=== PATIENT | male | born 1980 | race Caucasian/White ===

== ENCOUNTER 2018-11-19 15:14 | Emergency (ER) | payer OTHER ==
[~2018-11-19] VITALS: Ht 188 cm; Wt 84.1 kg
[2018-11-19 15:19] VITALS: Ht 188 cm; Wt 84.1 kg
[2018-11-19] MEDS ORDERED: IBUPROFEN 800 MG TAB PO ONE (16:30)
[2018-11-19] MEDS ORDERED: IBUP-1542 PO (16:33)
--- NOTE | 2018-11-19 16:34 | ERD ---
ER Documentation Chief Complaint Chief Complaint LT SIDE CHEST PAIN RADIATING TO LT ARM AND BACK HPI Patient is a 38-year-old male with no medical problems who presents with left- sided chest pain. The patient said that it started yesterday. It radiates to his left arm and his left arm felt numb. He has had no treatment as of yet. Upon review of old medical records this is the patient's first visit to the emergency department. He does not remember the name of his primary doctor. The symptoms come and go and are sharp in nature. ROS All systems reviewed and are negative except as per history of present illness. Medications Home Meds Active Scripts Ibuprofen* (Motrin*) 600 Mg Tab, 600 MG PO Q6H PRN for PAIN AND OR ELEVATED TEMP, #30 TAB Prov:ZAHIRA LANIER MD 11/19/18 Allergies Allergies: Coded Allergies: No Known Allergy (Unverified , 11/19/18) PMhx/Soc Medical and Surgical Hx: pt denies Medical Hx, pt denies Surgical Hx Hx Alcohol Use: No Hx Substance Use: No Hx Tobacco Use: No Smoking Status: Never smoker FmHx Family History: No diabetes Physical Exam Vitals Vital Signs Date Temp Pulse Resp B/P (MAP) Pulse Ox O2 O2 Flow FiO2 Time Delivery Rate 11/19/18 97.8 67 15 133/91 97 Room Air 16:40 (105) 11/19/18 98.8 63 17 146/65 98 15:19 (92) Physical Exam Const: No acute distress Head: Atraumatic Eyes: Normal Conjunctiva ENT: Normal External Ears, Nose and Mouth. Neck: Full range of motion. No meningismus. Resp: Clear to auscultation bilaterally Cardio: Regular rate and rhythm, no murmurs Abd: Soft, non tender, non distended. Normal bowel sounds Skin: No petechiae or rashes Back: No midline or flank tenderness Ext: No cyanosis, or edema Neur: Awake and alert Psych: Normal Mood and Affect Results 24 hrs Current Medications Medications Dose Sig/Casi Start Time Status Last (Trade) Ordered Route PRN Stop Time Admin Dose Reason Admin Ibuprofen 800 mg ONCE ONCE 11/19/18 DC 11/19/18 (Motrin) PO 16:30 16:30 11/19/18 16:31 Procedures/MDM EKG read by me: Rate/Rhythm: Regular rate and rhythm at a rate of 70 Intervals: Normal Impression: No evidence of ischemia or arrhythmia Chest x-ray negative per radiology. Patient is a 38-year-old male with no cardiac risk factors who presents with chest pain. EKG and chest x-ray are negative. At this point I doubt acute coronary syndrome, pneumonia, pneumothorax, pulmonary embolism, or aortic dissection. The patient will be discharged but will need to follow-up closely with his primary doctor within 24-48 hours. He can return sooner for any worsening symptoms. Departure Diagnosis: Primary Impression: Chest pain Chest pain type: unspecified Qualified Codes: R07.9 - Chest pain, unspecified Condition: Fair Patient Instructions: Chest Pain, Uncertain Cause Referrals: Your doctor Additional Instructions: Llame al doctor MAANA y nila westley BAYRON PARA DENTRO DE 1-2 EVGAS.Dgale a la secretaria que nosotros le instruimos hacer esta bayron.Avise o llame si romero condicin se empeora antes de la bayron. Regresa aqui si peor o no mejor. ZAHIRA LANIER MD Nov 19, 2018 16:34
[2018-11-19 16:40] VITALS: BP 133/91; PULSE 67; RESP 15
== END 2018-11-19 16:45 | disposition home or self-care (01) ==
LOC: E/R 15:14
DX: R07.9 Chest pain, unspecified (principal)
CPT/HCPCS: 71045; 93005